=== PATIENT | male | born 1985 | race Caucasian/White ===

== ENCOUNTER → 2020-06-17 | Outpatient (CLI) | payer OTHER ==
[~2020-06-17] MED LIST: ISOVUE-M 300 61% 15ML VIAL As Ordered ONE; LIDOCAINE 1% MDV 20ML VIAL As Ordered ONE
[2020-06-17 14:18] LABS: APPEARANCE, CSF CLEAR (CLEAR); COLOR, CSF COLORLESS (COLORLESS); CSF TUBE# CELL CNT TUBE 1
[2020-06-17 14:52] LABS: CSF TUBE# GLU TUBE 1; CSF TUBE# TP TUBE 1; GLUCOSE CSF 56 MG/DL (40-75); TOTAL PROTEIN,CSF 28 MG/DL (15-45)
[2020-06-17 16:00] VITALS: BP 143/89
--- NOTE | 2020-06-17 16:11 | REP ---
INDICATION: LUMBAR PUNCTURE. TECHNIQUE: The procedure was performed under the direct supervision of Dr. Arreguin. The risks and benefits of the procedure were explained to the patient and informed consent was obtained. The L3-4 interspace was localized using fluoroscopic guidance. The skin was prepped and draped in a sterile fashion. 1% lidocaine was used as a local anesthetic. Using fluoroscopic guidance a 22-gauge spinal needle was inserted and advanced into the thecal sac. Opening pressure measured 14 cm of H2O. 12 ml of spinal fluid was withdrawn and sent to lab. The patient tolerated the procedure well and there were no immediate complications. Less than 6 seconds of fluoro time was utilized for this procedure. FINDINGS: Opening pressure measured 14 cm of H2O. IMPRESSION: Fluoro guidance for lumbar puncture. Opening pressure measured 14 cm of H2O. <Electronically signed by Christo Tate > 06/17/20 [id number] <Electronically signed by Aleks Arreguin > 06/17/20 [id number]
== END ==
LOC: M IRPRO 12:59
PROVIDERS: ATTEND Psychiatry & Neurology Neurology
DX: G35 Multiple sclerosis (principal)

== ENCOUNTER 2020-06-20 18:59 | Emergency (ER) | payer OTHER ==
[~2020-06-20] VITALS: Ht 172.7 cm; Wt 126.7 kg
[2020-06-20 19:00] VITALS: BP 156/84
== END 2020-06-20 20:09 | disposition left against medical advice (07) ==
LOC: M ED 18:59
DX: Z53.21 Procedure and treatment not carried out due to patient leaving prior to being seen by health care provider (principal)